=== PATIENT | female | born 1975 | race Hispanic/Latino ===

== ENCOUNTER 2018-04-04 08:09 | Emergency (ER) | payer OTHER ==
[~2018-04-04] VITALS: Ht 157.5 cm; Wt 72.6 kg
[2018-04-04] MEDS ORDERED: ONDANSETRON HCL INJ 2MG/ML 2ML 2 MG/ML VIAL IV STA (08:32)
[2018-04-04] MEDS ORDERED: SODIUM CHLORIDE 0.9% 1000ML 1,000 ML IV STA (08:32)
[2018-04-04] MEDS ORDERED: MECLIZINE HCL 12.5 MG TAB PO ONE (08:45)
--- NOTE | 2018-04-04 09:19 | Diagnostic Imaging Report ---
EXAMINATION: Head CT HISTORY: Dizziness, headache COMPARISON: None. TECHNIQUE: Multidetector axial images were obtained without contrast from the foramen magnum to the vertex . The images were reconstructed using brain and bone algorithms. Thin section brain images were reformatted into coronal and sagittal planes. Image quality: Motion/streaking artifact limits the evaluation of the skull base and posterior cranial fossa. Dose modulation, iterative reconstruction, and/or weight based adjustment of the mA/kV was utilized to reduce the radiation dose to as low as reasonably achievable. FINDINGS: Parenchyma: 1. A few juxtacortical and matter hypodensities mainly in the anterior/superior frontal lobes, which may be migraine related or secondary to minimal chronic microvascular ischemic changes. 2. No mass or hemorrhage. No CT evidence of acute territorial vascular insult. Extra-axial spaces:No abnormal density. No extra-axial fluid collections Brain volume: Normal for age. Ventricles: No hydrocephalus or displacement. Arteries: No density suggestive of thrombus. Dural sinuses: No abnormal density. Extra-axial spaces: No abnormal density. Foramen magnum: No mass, Chiari malformation, or basilar invagination. Sella: No obvious mass. Paranasal/mastoid sinuses: Imaged portions unremarkable. Skull/Scalp: No lytic or blastic lesions. No fractures. IMPRESSION: No acute intracranial hemorrhage. Minimal chronic microvessel ischemic changes. Signed by: Dr. Tayla Call M.D. on 04/04/2018 9:16 AM
== END 2018-04-04 10:00 | disposition home or self-care (01) ==
LOC: FSED 08:09
DX: R42 Dizziness and giddiness (principal); R11.0 Nausea; E28.2 Polycystic ovarian syndrome
CPT/HCPCS: 70450; 80053; 81003; 81025; 85025; 93005; 99284; J2405; J7030